=== PATIENT | female | born 1955 | race Native Hawaiian/Other Pacific Islander ===

== ENCOUNTER 2017-12-08 09:24 | Outpatient (CLI) | payer BC | END 2017-12-08 23:54 | disposition home or self-care (01) | LOC: MAMMO 09:24 | DX: Z12.31 Encounter for screening mammogram for malignant neoplasm of breast (principal) ==

== ENCOUNTER 2018-06-01 09:19 | Outpatient (CLI) | payer BC | END 2018-06-01 19:20 | disposition home or self-care (01) | LOC: RAD 09:19 | DX: Z13.820 Encounter for screening for osteoporosis (principal); Z78.0 Asymptomatic menopausal state ==

== ENCOUNTER 2019-05-15 13:52 | Outpatient (CLI) | payer OTHER ==
[2019-05-15 14:17] LABS: POTASSIUM 4.1 mmol/L (3.6-5.2)
[2019-05-15 14:22] LABS: PLATELET COUNT 232 K/uL (152-353)
== END 2019-05-15 20:47 | disposition home or self-care (01) ==
LOC: LAB 13:52
PROVIDERS: Internal Medicine
DX: Z00.00 Encounter for general adult medical examination without abnormal findings (principal); Z13.820 Encounter for screening for osteoporosis; I10 Essential (primary) hypertension; E03.8 Other specified hypothyroidism; E55.9 Vitamin D deficiency, unspecified
CPT/HCPCS: 80053; 80061; 81000; 82306; 84439; 84443; 85027

== ENCOUNTER 2019-05-30 12:21 | Outpatient (CLI) | payer OTHER | END 2019-05-30 20:10 | disposition home or self-care (01) | LOC: MAMMO 12:21 | DX: Z12.31 Encounter for screening mammogram for malignant neoplasm of breast (principal); Z13.820 Encounter for screening for osteoporosis ==

== ENCOUNTER 2020-05-20 13:53 | Outpatient (CLI) | payer OTHER ==
[2020-05-20 14:04] LABS: PLATELET COUNT 261 K/uL (152-353)
[2020-05-20 14:24] LABS: POTASSIUM 4.3 mmol/L (3.6-5.2)
== END 2020-05-20 19:49 | disposition home or self-care (01) ==
LOC: LAB 13:53
PROVIDERS: ATTEND Internal Medicine
DX: Z00.00 Encounter for general adult medical examination without abnormal findings (principal); I10 Essential (primary) hypertension; Z13.820 Encounter for screening for osteoporosis; E03.8 Other specified hypothyroidism; E55.9 Vitamin D deficiency, unspecified
CPT/HCPCS: 80053; 80061; 81000; 82306; 84439; 84443; 85027

== ENCOUNTER 2020-06-25 09:28 | Outpatient (CLI) | payer OTHER | END 2020-06-25 21:43 | disposition home or self-care (01) | LOC: MAMMO 09:28 | PROVIDERS: ATTEND Internal Medicine | DX: Z12.31 Encounter for screening mammogram for malignant neoplasm of breast (principal); Z13.820 Encounter for screening for osteoporosis; N95.8 Other specified menopausal and perimenopausal disorders ==

== ENCOUNTER 2020-08-21 13:59 | Outpatient (CLI) | payer OTHER ==
[2020-08-21 15:36] LABS: POTASSIUM 4.1 mmol/L (3.6-5.2)
== END 2020-08-21 19:58 | disposition home or self-care (01) ==
LOC: LABW 13:59
PROVIDERS: ATTEND Internal Medicine Cardiovascular Disease
DX: I50.9 Heart failure, unspecified (principal); Z79.899 Other long term (current) drug therapy
CPT/HCPCS: 36415; 80048; 83880; 84443

== ENCOUNTER 2021-01-20 17:29 | Outpatient (CLI) | payer OTHER | END 2021-01-20 21:47 | disposition home or self-care (01) | LOC: RAD 17:29 | PROVIDERS: ATTEND Nurse Practitioner Family | DX: J18.0 Bronchopneumonia, unspecified organism (principal) ==

== ENCOUNTER 2021-05-22 13:59 | Outpatient (CLI) | payer OTHER ==
[2021-05-22 14:29] LABS: PLATELET COUNT 259 K/uL (152-353)
== END 2021-05-22 18:57 | disposition home or self-care (01) ==
LOC: LAB 13:59
PROVIDERS: ATTEND Internal Medicine
DX: Z00.00 Encounter for general adult medical examination without abnormal findings (principal); I50.9 Heart failure, unspecified; Z79.899 Other long term (current) drug therapy; Z13.820 Encounter for screening for osteoporosis; E55.9 Vitamin D deficiency, unspecified
CPT/HCPCS: 80053; 80061; 81000; 82306; 84439; 84443; 85027

== ENCOUNTER 2021-07-15 08:59 | Outpatient (CLI) | payer OTHER | END 2021-07-15 19:26 | disposition home or self-care (01) | LOC: MAMMO 08:59 | PROVIDERS: ATTEND Internal Medicine | DX: Z12.31 Encounter for screening mammogram for malignant neoplasm of breast (principal) ==

== ENCOUNTER 2021-08-29 10:24 | Outpatient (CLI) | payer OTHER | END 2021-08-29 19:35 | disposition home or self-care (01) | LOC: LAB 10:24 | PROVIDERS: ATTEND Internal Medicine | DX: N39.0 Urinary tract infection, site not specified (principal) | CPT/HCPCS: 87077; 87086; 87088; 87186 ==

== ENCOUNTER 2021-10-03 07:52 | Outpatient (CLI) | payer OTHER | END 2021-10-03 20:24 | disposition home or self-care (01) | LOC: LAB 07:52 | PROVIDERS: ATTEND Internal Medicine | DX: Z01.818 Encounter for other preprocedural examination (principal) | CPT/HCPCS: 87635; U0003 ==

== ENCOUNTER 2021-11-24 13:07 | Outpatient (CLI) | payer OTHER ==
[2021-11-24 13:25] LABS: PLATELET COUNT 249 K/uL (152-353)
[2021-11-24 13:45] LABS: POTASSIUM 4.7 mmol/L (3.6-5.2)
== END 2021-11-24 19:03 | disposition home or self-care (01) ==
LOC: LAB 13:07
PROVIDERS: ATTEND Internal Medicine
DX: I10 Essential (primary) hypertension (principal); E03.9 Hypothyroidism, unspecified
CPT/HCPCS: 80053; 80061; 84439; 84443; 85027

== ENCOUNTER 2022-06-16 11:53 | Outpatient (CLI) | payer OTHER ==
[2022-06-16 12:14] LABS: PLATELET COUNT 271 K/uL (152-353)
[2022-06-16 12:35] LABS: POTASSIUM 4.6 mmol/L (3.6-5.2)
== END 2022-06-16 19:01 | disposition home or self-care (01) ==
LOC: LAB 11:53
PROVIDERS: ATTEND Internal Medicine
DX: Z00.00 Encounter for general adult medical examination without abnormal findings (principal); I10 Essential (primary) hypertension; E03.8 Other specified hypothyroidism; Z13.820 Encounter for screening for osteoporosis; E55.9 Vitamin D deficiency, unspecified
CPT/HCPCS: 80053; 80061; 81002; 82306; 84439; 84443; 85027

== ENCOUNTER 2022-07-20 09:13 | Outpatient (CLI) | payer OTHER | END 2022-07-20 20:16 | LOC: RAD 09:13 | PROVIDERS: ATTEND Internal Medicine | DX: Z12.31 Encounter for screening mammogram for malignant neoplasm of breast (principal); Z13.820 Encounter for screening for osteoporosis; N95.8 Other specified menopausal and perimenopausal disorders ==

== ENCOUNTER 2022-08-14 12:44 | Outpatient (CLI) | payer OTHER | END 2022-08-14 22:55 | disposition home or self-care (01) | LOC: LAB 12:44 | PROVIDERS: ATTEND Internal Medicine | DX: E03.8 Other specified hypothyroidism (principal) | CPT/HCPCS: 84439; 84443 ==